=== PATIENT | male | born 1990 | race Caucasian/White ===

== ENCOUNTER 2019-05-17 19:49 | Emergency (ER) | payer OTHER ==
[2019-05-17 19:54] VITALS: BP 154/99; PULSE 114; TEMP 98.1; BMI 35.5
[2019-05-17] MEDS ORDERED: DIPHTH,PERTUSS(ACELL),TET 0.5 ML DISP.SYRIN IM ONE ×2 (21:02→22:06)
[2019-05-17] MEDS ORDERED: ACETAMINOPHEN 500 MG TABLET (FP) PO ONE (21:09)
[2019-05-17] MEDS ORDERED: CEPHALEXIN 250 MG/5 ML ORAL SUSPENSION PO ONE (21:10)
--- NOTE | 2019-05-17 21:10 | PDOC ---
History of Present Illness - General Chief Complaint: Injury Stated Complaint: HEAD INJURY/LACERATION Time Seen by Provider: 05/17/19 21:02 - History of Present Illness Initial Comments: 05/17/19 21:07 Mr. Marsh is a 28 yo male w/ no pmh who presents after falling off of a ladder earlier today. Patient reports he hit his head when he fell. Denies any nausea or vomiting. Patient reports he hit something sharp when falling and has a laceration to head. Thinks he may have lost consciousness briefly. Denies other complaints at this time. The patient denies chest pain, shortness of breath, and dizziness. Denies fever , chills, nausea, vomit, diarrhea and constipation. Denies dysuria, frequency, urgency and hematuria. Past History - Past Medical History Allergies/Adverse Reactions: Allergies Allergy/AdvReac Type Severity Reaction Status Date / Time No Known Allergies Allergy Verified 05/17/19 19:53 Asthma: Yes COPD: No - Psycho Social/Smoking Cessation Hx Smoking History: Never smoked Review of Systems - Review of Systems Comments:: 05/17/19 21:08 GENERAL/CONSTITUTIONAL: No fever or chills. No weakness. HEAD, EYES, EARS, NOSE AND THROAT: +Head injury as described w/ fall. No change in vision. No ear pain or discharge. No sore throat. CARDIOVASCULAR: No chest pain or shortness of breath RESPIRATORY: No cough, wheezing, or hemoptysis. GASTROINTESTINAL: No nausea, vomiting, diarrhea or constipation. GENITOURINARY: No dysuria, frequency, or change in urination. MUSCULOSKELETAL: No joint or muscle swelling or pain. No neck or back pain. SKIN: No rash NEUROLOGIC: No headache, vertigo, or change in strength/sensation. ENDOCRINE: No increased thirst. No abnormal weight change HEMATOLOGIC/LYMPHATIC: No anemia, easy bleeding, or history of blood clots. ALLERGIC/IMMUNOLOGIC: No hives or skin allergy. *Physical Exam - Vital Signs Last Vital Signs Temp Pulse Resp BP Pulse Ox 98.1 F 114 H 18 154/99 97 05/17/19 19:50 05/17/19 19:50 05/17/19 19:50 05/17/19 19:50 05/17/19 19:50 - Physical Exam 05/17/19 21:09 GENERAL: Awake, alert, and fully oriented, in no acute distress HEAD: No signs of trauma, normocephalic, atraumatic EYES: PERRLA, EOMI, sclera anicteric, conjunctiva clear ENT: Auricles normal inspection, hearing grossly normal, nares patent, oropharynx clear without exudates. Moist mucosa NECK: Normal ROM, supple, no lymphadenopathy, JVD, or masses LUNGS: No distress, speaks full sentences, clear to auscultation bilaterally HEART: Regular rate and rhythm, normal S1 and S2, no murmurs, rubs or gallops, peripheral pulses normal and equal bilaterally. ABDOMEN: Soft, nontender, normoactive bowel sounds. No guarding, no rebound. No masses EXTREMITIES: Normal inspection, Normal range of motion, no edema. No clubbing or cyanosis. NEUROLOGICAL: Cranial nerves II through XII grossly intact. Normal speech, normal gait, no focal sensorimotor deficits SKIN: Warm, Dry, normal turgor, no rashes or lesions noted. Procedures - Laceration/Wound Repair Left Head Wound Length: to 2.5 cm Wound Explored: clean Wound's Depth, Shape: superficial Wound Repaired With: Michelle (5 placed) ED Treatment Course - RADIOLOGY Radiology Studies Ordered: Category Date Time Status HEAD CT WITHOUT CONTRAST [CT] Stat CT Scan 05/17/19 21:02 Ordered Medical Decision Making - Medical Decision Making 05/17/19 21:54 Mr. Marsh is a 28 yo male w/ pmh as described who presents for evaluation s/ p fall. Patient evaluated with CT for acute process and wound repaired w/ 5 michelle. Tylenol given for pain and tetanus updated. 05/17/19 22:07 CT negative for acute process. Upon repeat exam patient reported height was approximately 14-15 feet that he fell from. Advised patient that he should get more imaging/blood work given nature of fall. Patient reports feeling well and does not wish for additional testing at this time. Advised patient this is medically unsafe and he should stay for further evaluation given mechanism. Patient adamant and said he will sign AMA form. ABX sent to patient's pharmacy. 05/17/19 22:11 Patient noted to have eloped prior to AMA forms. Discharge - Discharge Information Problems reviewed: Yes Clinical Impression/Diagnosis: Head trauma Qualifiers: Encounter type: initial encounter Qualified Code(s): S09.90XA - Unspecified injury of head, initial encounter Disposition: ELOPED - Follow up/Referral - Patient Discharge Instructions - Post Discharge Activity
--- NOTE | 2019-05-17 21:12 | PDOC ---
Attending Attestation - Resident Resident Name: Elias Morejon - ED Attending Attestation I have performed the following: I have examined & evaluated the patient, The case was reviewed & discussed with the resident, I agree w/resident's findings & plan
--- NOTE | 2019-05-17 21:46 | PDOC ---
Attending Attestation - Resident Resident Name: Elias Morejon - ED Attending Attestation I have performed the following: I have examined & evaluated the patient, The case was reviewed & discussed with the resident, I agree w/resident's findings & plan - HPI HPI: 05/17/19 21:41 Pt comes with laceration to the left side of his scalp. Pt states that he accidentally fell and hurt self. He running around the ER stating that he will walk out, as he fell at work, left the store unlocked and now he 05/17/19 22:08 Pt tells us that he fell off a 12-15 foot ladder. He is refusing IV and refusing labs and refusing CT c spine. Only wants a head CT and he wants us to repair his scalp wound. Pt is willing to have abx and to have Tdap. 05/17/19 22:11 I explained to pt clearly that this is a serious trauma that he went through, and that he needs 24 hr observation for his mechanism of injury; further trauma workup and observation for his LOC. Pt agreeing to sign AMA. Then states he is going to the waiting room to speak to his girlfriend and walked out and eloped. - Physicial Exam PE: 05/19/19 20:11 Agree with resident exam - Medical Decision Making 05/17/19 22:08 CT head is normal.
== END 2019-05-17 22:18 | disposition left against medical advice (07) ==
LOC: JER 19:49
PROC: 0HQ0XZZ Repair Scalp Skin, External Approach (ICD-10-PCS; principal; 2019-05-17)
PROC: 3E0234Z Introduction of Serum, Toxoid and Vaccine into Muscle, Percutaneous Approach (ICD-10-PCS; 2019-05-17)
DX: S01.01XA Laceration without foreign body of scalp, initial encounter (principal); W11.XXXA Fall on and from ladder, initial encounter; Y93.89 Activity, other specified; Y92.89 Other specified places as the place of occurrence of the external cause; Y99.8 Other external cause status
CPT/HCPCS: 70450-TC; 90715; 99284-25

== ENCOUNTER 2019-05-26 11:19 | Emergency (ER) | payer OTHER ==
[2019-05-26 11:26] VITALS: BP 126/78; PULSE 93; TEMP 98.1; BMI 35.5
--- NOTE | 2019-05-26 11:37 | PDOC ---
Suture Removal/Wound Check HPI - History of Present Illness Chief Complaint: Suture/Staple Removal(Here) Stated Complaint: STAPLE REMOVAL Time Seen by Provider: 05/26/19 11:27 History Source: Yes: Patient Exam Limitations: Yes: Clinical Condition Treated at: [facility] Date of Last ED visit: 05/17/19 - Previous ED Treatment Type of procedure performed on last visit: Yes: Laceration Repair Tetanus Immunization: Yes: Up to Date Antibiotics Prescribed: No Past History - Past Medical History Allergies/Adverse Reactions: Allergies Allergy/AdvReac Type Severity Reaction Status Date / Time No Known Allergies Allergy Verified 05/26/19 11:29 Home Medications: Ambulatory Orders NK [No Known Home Medication] 05/17/19 Asthma: Yes COPD: No - Psycho Social/Smoking Cessation Hx Smoking History: Never smoked Suture Removal/Wound Check PE - Physical Exam Laceration/Wound Check Symptoms: reports: None, Improved. denies: Fever, Chills , Redness, Discharge, Bleeding Current Severity Level: None Location of Laceration/Wound: left: Head Pain Radiation: None *Review of Systems - Review of Systems Able to Perform ROS?: Yes Constitutional: No: Chills, Fever, Malaise HEENTM: No: Symptoms Reported, Eye Pain, Blurred Vision, Recent change in vision , Double Vision Respiratory: No: Symptoms reported, See HPI, Cough, Orthopnea, Shortness of Breath, SOB with Exertion, SOB at Rest, Stridor, Wheezing, Productive cough, Hemoptysis, Other Cardiac (ROS): No: Symptoms Reported, See HPI, Chest Pain, Edema, Irregular Heart Rate, Lightheadedness, Palpitations, Syncope, Chest Tightness, Other ABD/GI: No: Symptoms Reported, Nausea, Vomiting Musculoskeletal: No: Symptoms Reported Integumentary: No: Symptoms Reported, Erythema Neurological: No: Symptoms reported, Headache, Dizziness All Other Systems: Reviewed and Negative *Physical Exam - Vital Signs Last Vital Signs Temp Pulse Resp BP Pulse Ox 98.1 F 93 H 18 126/78 99 05/26/19 11:24 05/26/19 11:24 05/26/19 11:24 05/26/19 11:24 05/26/19 11:24 - Physical Exam General Appearance: Yes: Nourished, Appropriately Dressed. No: Apparent Distress HEENT: positive: MARVIN, Normal ENT Inspection, Normal Voice Neck: positive: Supple Respiratory/Chest: positive: Lungs Clear, Normal Breath Sounds. negative: Respiratory Distress, Accessory Muscle Use Cardiovascular: positive: Regular Rhythm, Regular Rate Musculoskeletal: positive: Normal Inspection Extremity: positive: Normal Inspection Integumentary: positive: Normal Color, Other (well healed laceration to left side of scalp over paretal area with [address] no skin erythema. no wound dehiscence. no evidence of wound infection) Neurologic: positive: Fully Oriented, Alert, Normal Mood/Affect, Normal Response Medical Decision Making - Medical Decision Making 05/26/19 11:40 Patient presents for staple removal status post present over week ago with laceration to left side of scalp after falling off a ladder while at work requiring staple placement. Patient was advised to stay for 10 follow-ups due to falling off 12 feet ladder but patient refused to stay and walked out AGAINST MEDICAL ADVICE. Denies headache, dizziness, blurry vision, nausea, vomiting, change in vision. Patient reported feeling normal. Exam significant for 3 cm laceration over left side of the scalp over parietal area with [address] No skin erythema or evidence of wound infection. Staple removed with staple removal kit without complication. Bacitracin applied to wound. Patient stable for discharge with advised to continue bacitracin twice a day for another week and take Tylenol as needed for pain with PCP follow-up Discharge - Discharge Information Problems reviewed: Yes Clinical Impression/Diagnosis: Encounter for removal of michelle Head trauma Qualifiers: Encounter type: subsequent encounter Qualified Code(s): S09.90XD - Unspecified injury of head, subsequent encounter Condition: Stable Disposition: HOME - Admission No - Follow up/Referral - Patient Discharge Instructions Patient Printed Discharge Instructions: How to Care for a Surgical Wound- [place] Additional Instructions: Continue applying bacitracin twice a day for another week to wound until fully healed. Take Tylenol as needed for pain. Follow-up with primary care as needed - Post Discharge Activity
== END 2019-05-26 11:46 | disposition home or self-care (01) ==
LOC: JERFT 11:19
DX: Z48.817 Encounter for surgical aftercare following surgery on the skin and subcutaneous tissue (principal); Z48.02 Encounter for removal of sutures
CPT/HCPCS: 99281-25